=== PATIENT | female | born 1970 | race African-American/Black ===

== ENCOUNTER 2016-07-12 18:15 | Emergency (ER) | payer OTHER ==
[2016-07-12 18:22] VITALS: BP 132/91; PULSE 82; TEMP 97.9; BMI 37.0
--- NOTE | 2016-07-12 18:22 | PDOC ---
History of Present Illness - General History Source: Patient Exam Limitations: No Limitations - History of Present Illness Initial Comments: 07/12/16 18:33 The patient is a 45 year old female, with no significant past medical history who presents to the emergency department with cough, fever, and ear congestion. Patient reports also having chest tightness and SOB that is often worse with any exertion. She denies fever, chills, headache and dizziness. She denies nausea, vomit, diarrhea and constipation. Allergies: NKDA Past surgical history: denies Social history: denies EtOH use, denies tobacco use, denies drug use. <Wayne Schafer - Last Filed: 07/12/16 18:33> <Raman Hanks - Last Filed: 07/12/16 19:16> - General Chief Complaint: Cold Symptoms Stated Complaint: cold, congested Time Seen by Provider: 07/12/16 18:18 Past History <Wayne Schafer - Last Filed: 07/12/16 18:33> - Psycho/Social/Smoking Cessation Hx Suicidal Ideation: No Smoking History: Never smoked Have you smoked in the past 12 months: No Information on smoking cessation initiated: No Hx Alcohol Use: No Drug/Substance Use Hx: No <Raman Hanks - Last Filed: 07/12/16 19:16> - Past Medical History Allergies/Adverse Reactions: Allergies Allergy/AdvReac Type Severity Reaction Status Date / Time No Known Allergies Allergy Verified 07/12/16 18:31 Home Medications: Ambulatory Orders Cetirizine HCl [Zyrtec -] 10 mg PO DAILY #14 tablet 07/12/16 Guaifenesin Dm [Robitussin Dm -] 10 ml PO Q6H #100 cup 07/12/16 Ibuprofen [Advil -] 200 mg PO Q6H PRN #20 tablet 07/12/16 Review of Systems - Review of Systems Constitutional: Yes: Fever. No: Chills, Diaphoresis, Night Sweats, Weakness HEENTM: No: Eye Pain, Blurred Vision, Ear Pain, Throat Pain, Throat Swelling, Difficulty Swallowing, Mouth Swelling Respiratory: Yes: Cough, Shortness of Breath, SOB with Exertion Cardiac (ROS): Yes: Chest Tightness. No: Lightheadedness, Palpitations, Syncope ABD/GI: No: Abdominal Distended, Constipated, Diarrhea, Nausea, Vomiting : No: Dysuria, Discharge, Frequency, Flank Pain, Hematuria Musculoskeletal: No: Back Pain, Joint Pain, Joint Swelling, Muscle Pain, Muscle Weakness, Neck Pain Neurological: No: Headache, Numbness, Tingling, Weakness Psychiatric: No: Anxiety, Depression <Wayne Schafer - Last Filed: 07/12/16 18:33> *Physical Exam - Vital Signs Last Vital Signs Temp Pulse Resp BP Pulse Ox 97.9 F 82 22 132/91 98 07/12/16 18:17 07/12/16 18:17 07/12/16 18:17 07/12/16 18:17 07/12/16 18:17 - Physical Exam General Appearance: Yes: Nourished, Appropriately Dressed HEENT: positive: EOMI, BUSTER, Normal Voice, Pharyngeal Erythema, Other (Ear canal congestion.). negative: Tonsillar Exudate Neck: positive: Normal Thyroid, Supple Respiratory/Chest: positive: Lungs Clear, Normal Breath Sounds Cardiovascular: positive: Regular Rhythm, Regular Rate Gastrointestinal/Abdominal: positive: Normal Bowel Sounds, Flat, Soft. negative : Tender, Organomegaly, Pulsatile Mass Musculoskeletal: positive: Normal Inspection. 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 <Wayne Schafer - Last Filed: 07/12/16 18:33> - Discharge Dispostion Admit: No <Raman Hanks - Last Filed: 07/12/16 19:16> Diagnosis at time of Disposition: Upper respiratory infection, viral - Discharge Dispostion Disposition: HOME Condition at time of disposition: Stable - Prescriptions Prescriptions: Ibuprofen [Advil -] 200 mg PO Q6H PRN #20 tablet PRN Reason: Back Pain Guaifenesin Dm [Robitussin Dm -] 10 ml PO Q6H #100 cup Cetirizine HCl [Zyrtec -] 10 mg PO DAILY #14 tablet - Patient Instructions Printed Discharge Instructions: How to Avoid a Cold or Flu, DI for Viral Upper Respiratory Infection -- Adult - Post Discharge Activity Work/School Note: Back to Work
== END 2016-07-12 19:20 | disposition home or self-care (01) ==
LOC: FER 18:15
DX: J06.9 Acute upper respiratory infection, unspecified (principal); B97.89 Other viral agents as the cause of diseases classified elsewhere
CPT/HCPCS: 87070; 87430; 99281-25